=== PATIENT | female | born 1980 | race Caucasian/White ===

== ENCOUNTER 2018-01-07 12:01 | Emergency (ER) | payer MEDICARE, MEDICAID ==
--- NOTE | 2018-01-07 12:24 | ED.PDOC ---
History of Present Illness - General Chief Complaint: Dental/Mouth Stated Complaint: toothache Time Seen by Provider: 01/07/18 12:23 Source: patient Exam Limitations: no limitations - History of Present Illness Initial Comments: Karen Manley 37 y/o female stated that she had dull pain on her right upper molar for the last one week had seen dentist in [place] but told that she needs oral surgeon. Timing/Duration: last week EENT Location: dental Prearrival Treatment: no prearrival treatment Presenting Symptoms: dental pain Improving Factors: nothing Worsening Factors: eating Associated Symptoms: denies symptoms Allergies/Adverse Reactions: Allergies Sertraline [From Zoloft] Allergy (Verified 01/07/18 12:26) Home Medications: Ambulatory Orders Acetamin W/Cod #3 Tab [Tylenol w/CODEINE #3] 1 ea PO TID PRN #6 tab 01/07/18 Clindamycin HCl 150 mg PO TID 7 Days #21 cap 01/07/18 Gabapentin 300 mg PO BID #6 cap 01/07/18 Review of Systems - Review of Systems Constitutional: States: no symptoms reported EENTM: States: see HPI Respiratory: States: no symptoms reported Cardiology: States: no symptoms reported Gastrointestinal/Abdominal: States: no symptoms reported Past Medical History (General) - Patient Medical History Hx Seizures: No Hx Asthma: No Hx Hypertension: No Surgical History: other - btl - Social History Hx Tobacco Use: Yes Hx Alcohol Use: No Hx Substance Use: No Hx Substance Use Treatment: No - Female History Patient is a Female of Child Bearing Age (10 -59 yrs old): Yes Hx Last Menstrual Period: 01/02/18 Patient : No Family Medical History - Family History Father Hx Family Hypertension: Yes - mom Hx Family Cancer: Yes - dad-skin cancer Mother Family History: Unknown Living Status: Physical Exam - Physical Exam General Appearance: Alert, Comfortable, No apparent distress Eye Exam: bilateral normal Ear Exam: bilateral ear: auricle normal, canal normal, TM normal Nasal Exam: normal inspection Throat Exam: dental tenderness - upper molar with gum swelling around decayed tooth, other - multiple decayed teeth Neck: non-tender, full range of motion, supple, normal inspection, trachea midline Cardiovascular/Respiratory: regular rate, rhythm, no M/R/G, normal peripheral pulses Abdominal Exam: non-tender, no organomegaly Neurologic: no motor/sensory deficits, alert, oriented x 3 Skin Exam: normal color, warm/dry Progress - Progress Progress: 01/07/18 12:33 Vital Signs - 8 hr 01/07/18 12:05 Temperature 96.3 F L Pulse Rate [ 75 monitor] Respiratory 18 Rate Blood Pressure 161/103 [Left Arm] O2 Sat by Pulse 100 Oximetry Departure - Departure Clinical Impression: Pain due to dental caries, Dental caries extending into pulp Time of Disposition: 12:35 Disposition: Discharge to Home or Self Care Condition: Fair Departure Forms: ED Discharge - Pt. Copy, Patient Portal Self Enrollment Instructions: DI for Dental Pain, Tooth Decay, Adult, Tooth Decay, Adult (DC), Dental Pain (DC) Diet: other - SOFT DIET ONLY UNTIL BETTER Referrals: Theodore Garcia MD [Primary Care Provider] - 1-2 Weeks Prescriptions: Acetamin W/Cod #3 Tab [Tylenol w/CODEINE #3] 1 ea PO TID PRN #6 tab PRN Reason: Pain Clindamycin HCl 150 mg PO TID 7 Days #21 cap Gabapentin 300 mg PO BID #6 cap Home Medications: Ambulatory Orders Acetamin W/Cod #3 Tab [Tylenol w/CODEINE #3] 1 ea PO TID PRN #6 tab 01/07/18 Clindamycin HCl 150 mg PO TID 7 Days #21 cap 01/07/18 Gabapentin 300 mg PO BID #6 cap 01/07/18 Additional Instructions: Need to call back dental surgeon in am for appointment
[2018-01-07 12:34] VITALS: BP 161/103; TEMP 96.3; O2SAT 100
[2018-01-07] MEDS: CLINDAMYCIN PHOSPHATE 150 MG/ML VIAL IM ONE (12:39)
[2018-01-07] MEDS: CLINDAMYCIN HCL CAP 150 MG CAP PO ONE (12:39)
== END 2018-01-07 12:55 | disposition home or self-care (01) ==
LOC: ER 12:01
DX: K02.9 Dental caries, unspecified (principal); Z87.891 Personal history of nicotine dependence

== ENCOUNTER 2018-03-26 18:15 | Emergency (ER) | payer MEDICARE, MEDICAID ==
[2018-03-26 18:44] VITALS: TEMP 97.4; O2SAT 100
[2018-03-26] MEDS ORDERED: CHLORHEXIDINE GLUCONATE 4 % 15 ML UD TOP ONE (18:50)
[2018-03-26] MEDS ORDERED: LIDOCAINE 1% 10 ML VIAL INJ ONE (18:50)
--- NOTE | 2018-03-26 18:54 | ED.PDOC ---
History of Present Illness - General Chief Complaint: Skin/Abrasion/Tear Stated Complaint: laceration Time Seen by Provider: 03/26/18 18:47 Source: patient Exam Limitations: no limitations - History of Present Illness Initial Comments: CUT HAND WHILE WASHING A GLASS Timing/Duration: just prior to arrival Severity: mild Location: hands Improving Factors: immobilization Worsening Factors: movement Associated Symptoms: denies symptoms Allergies/Adverse Reactions: Allergies Sertraline [From Zoloft] Allergy (Verified 01/07/18 12:26) Home Medications: Ambulatory Orders Acetamin W/Cod #3 Tab [Tylenol w/CODEINE #3] 1 ea PO TID PRN #6 tab 01/07/18 Clindamycin HCl 150 mg PO TID 7 Days #21 cap 01/07/18 Gabapentin 300 mg PO BID #6 cap 01/07/18 Review of Systems - Review of Systems Constitutional: States: no symptoms reported EENTM: States: no symptoms reported Respiratory: States: no symptoms reported Cardiology: States: no symptoms reported Musculoskeletal: States: no symptoms reported Skin: States: see HPI Neurological: Denies: numbness, weakness Past Medical History (General) - Patient Medical History Hx Seizures: No Hx Stroke: No Hx Dementia: No Hx Asthma: No Hx of COPD: No Hx Cardiac Disorders: No Hx Congestive Heart Failure: No Hx Pacemaker: No Hx Hypertension: No Hx Thyroid Disease: No Hx Diabetes: No Hx Gastroesophageal Reflux: No Hx Renal Disease: No Hx of HIV: No Hx MRSA: No Surgical History: other - Vaccination History Hx Tetanus, Diphtheria Vaccination: No Hx Influenza Vaccination: No Hx Pneumococcal Vaccination: No - Social History Hx Tobacco Use: Yes Hx Alcohol Use: No Hx Substance Use: No Hx Substance Use Treatment: No Hx Depression: Yes - bipolar - Female History Hx Last Menstrual Period: 01/02/18 Patient : No Family Medical History - Family History Father Family History: No Known Hx Family Hypertension: Yes - mom Hx Family Cancer: Yes - dad-skin cancer Mother Family History: Unknown Living Status: Physical Exam - Physical Exam General Appearance: Alert, Anxious Eyes, Ears, Nose, Throat Exam: TMs normal Neck: normal inspection Extremity: other - 1.5 CM LAC AT BASE OF R 5TH FINGER, [place] [employer] Skin Exam: warm/dry Procedures - Laceration/Wound Repair Right Volar Hand Wound Length (cm): 1.5 Wound's Depth, Shape: linear Wound Explored: clean Betadine Prep?: No Anesthesia: 1% Lidocaine Wound Repaired With: sutures Suture Size/Type: 4:0 Number of Sutures: 2 Layer Closure?: No Sterile Dressing Applied?: Yes Splint Applied?: No Sling Applied?: No Departure - Departure Clinical Impression: Laceration of right hand without complication, excluding fingers Qualifiers: Encounter type: initial encounter Qualified Code(s): S61.411A - Laceration without foreign body of right hand, initial encounter Disposition: Discharge to Home or Self Care Condition: Fair Departure Forms: ED Discharge - Pt. Copy, Patient Portal Self Enrollment Instructions: DI for Abrasion Referrals: Theodore Garcia MD [Primary Care Provider] - 1-2 Weeks Home Medications: Ambulatory Orders Acetamin W/Cod #3 Tab [Tylenol w/CODEINE #3] 1 ea PO TID PRN #6 tab 01/07/18 Clindamycin HCl 150 mg PO TID 7 Days #21 cap 01/07/18 Gabapentin 300 mg PO BID #6 cap 01/07/18
[2018-03-26] MEDS ORDERED: TETANUS,DIPHTHERIA,PERTUSSIS 1 EA SYG IM ONE (18:57)
[2018-03-26] MEDS ORDERED: NEOMYCIN-BACITRACIN-POLYMYXIN 0.9 GM UD TOP ONE (19:18)
[2018-03-26 19:33] VITALS: BP 133/79
== END 2018-03-26 19:33 | disposition home or self-care (01) ==
LOC: ER 18:15
DX: S61.411A Laceration without foreign body of right hand, initial encounter (principal); F31.9 Bipolar disorder, unspecified; Z87.891 Personal history of nicotine dependence; W25.XXXA Contact with sharp glass, initial encounter; Y93.G1 Activity, food preparation and clean up; Z23 Encounter for immunization

== ENCOUNTER 2019-01-10 13:11 | Emergency (ER) | payer MEDICARE, MEDICAID ==
[2019-01-10 13:29] VITALS: TEMP 97.8
[2019-01-10] MEDS ORDERED: SODIUM CHLORIDE 0.9% 1000ML 1,000 ML IVS ONE (13:50)
--- NOTE | 2019-01-10 14:00 | ED.PDOC ---
History of Present Illness - General Chief Complaint: Chest Pain/IA Stated Complaint: chest pain, dizziness Time Seen by Provider: 01/10/19 13:21 - History of Present Illness Initial Comments: Pt is a 38yo F who presents c/o dizziness and chest pain. Says she was having mild/intermittent chest pain over the past couple of days. none currently. No aggravating or alleviating symptoms. Says now that she just feels dizzy and lightheaded, but came to the ED today "just to get checked out. Endoreses some slight shortness of breath as well. No cough, fevers, chills, recent surgery, travel. no OCPs. Allergies/Adverse Reactions: Allergies Sertraline [From Zoloft] Allergy (Verified 01/07/18 12:26) Valproic Acid [From Depakote] Allergy (Verified 01/10/19 13:50) Hives Home Medications: Ambulatory Orders Acetamin W/Cod #3 Tab [Tylenol w/CODEINE #3] 1 ea PO TID PRN #6 tab 01/07/18 Clindamycin HCl 150 mg PO TID 7 Days #21 cap 01/07/18 Gabapentin 300 mg PO BID #6 cap 01/07/18 Review of Systems - Review of Systems Constitutional: States: no symptoms reported EENTM: States: no symptoms reported Respiratory: States: short of breath. Denies: wheezing Cardiology: States: chest pain. Denies: edema Gastrointestinal/Abdominal: States: no symptoms reported Genitourinary: States: no symptoms reported Musculoskeletal: States: no symptoms reported Skin: States: no symptoms reported Neurological: States: no symptoms reported Endocrine: States: no symptoms reported Hematologic/Lymphatic: States: no symptoms reported All other Systems: Reviewed and Negative Past Medical History (General) - Patient Medical History Hx Seizures: No Hx Stroke: No Hx Dementia: No Hx Asthma: No Hx of COPD: No Hx Cardiac Disorders: No Hx Congestive Heart Failure: No Hx Pacemaker: No Hx Hypertension: No Hx Thyroid Disease: No Hx Diabetes: No Hx Gastroesophageal Reflux: No Hx Renal Disease: No Hx of HIV: No Hx MRSA: No - Vaccination History Hx Tetanus, Diphtheria Vaccination: No Hx Influenza Vaccination: No Hx Pneumococcal Vaccination: No - Social History Hx Tobacco Use: Yes Hx Alcohol Use: No Hx Substance Use: No Hx Substance Use Treatment: No Hx Depression: Yes - bipolar - Female History Hx Last Menstrual Period: 01/02/18 Patient : No Family Medical History - Family History Mother Family History: Unknown Living Status: Father Family History: No Known Hx Family Hypertension: Yes - mom Hx Family Cancer: Yes - dad-skin cancer Maternal Grandparents Hx Cardiac Disease: Yes Physical Exam - Physical Exam General Appearance: Alert, Comfortable Eyes, Ears, Nose, Throat Exam: PERRL/EOMI, normal ENT inspection Neck: non-tender, full range of motion Respiratory: lungs clear, normal breath sounds Cardiovascular/Chest: normal peripheral pulses, regular rate, rhythm Gastrointestinal/Abdominal: non tender, soft Extremity: normal range of motion, non-tender Neurologic: no motor/sensory deficits, alert, normal mood/affect Skin Exam: normal color, warm/dry Progress - Progress Progress: 01/10/19 15:26 MDM Well appearing pt here with slight lightheadedness and episodic chest pain. Doubt ACS. PERC neg. Plan: labs, ekg, xr, treat symptoms, reassess - Results/Orders Results/Orders: Laboratory Results - last 24 hr 01/10/19 01/10/19 01/10/19 13:45 13:45 13:45 WBC 7.6 RBC 4.39 Hgb 12.6 Hct 37.8 MCV 86.0 MCH 28.7 MCHC 33.4 RDW 14.7 H Plt Count 247 MPV 9.4 Absolute Neuts (auto) 4.60 Absolute Lymphs (auto) 2.20 Absolute Monos (auto) 0.50 Absolute Eos (auto) 0.10 Absolute Basos (auto) 0.10 Neutrophils % 61.5 Lymphocytes % 29.4 Monocytes % 6.5 Eosinophils % 1.3 Basophils % 1.3 Sodium 135 Potassium 4.1 Chloride 103 Carbon Dioxide 20 L Anion Gap 16.1 BUN 12 Creatinine 0.84 BUN/Creatinine Ratio 14.3 Random Glucose 96 Serum Osmolality 269.7 L Calcium 9.4 Troponin I < 0.02 - EKG/XRAY/CT Comments: NSR @ 74, normal axis & intervals, no STEMI XRAY: chest Xray Comments: No acute findings Departure - Departure Clinical Impression: Lightheadedness Disposition: Discharge to Home or Self Care Condition: Fair Departure Forms: ED Discharge - Pt. Copy, Patient Portal Self Enrollment Instructions: DI for Chest Pain Referrals: Thalia Mcgregor NP [Primary Care Provider] - 1-2 Weeks Home Medications: Ambulatory Orders Acetamin W/Cod #3 Tab [Tylenol w/CODEINE #3] 1 ea PO TID PRN #6 tab 01/07/18 Clindamycin HCl 150 mg PO TID 7 Days #21 cap 01/07/18 Gabapentin 300 mg PO BID #6 cap 01/07/18
--- NOTE | 2019-01-10 14:29 | RAD ---
EXAM DESCRIPTION: Chest,2 Views CLINICAL HISTORY: 38 years Female, chest pain COMPARISON: None. FINDINGS: Heart size and pulmonary vessels are within normal limits. There is no pneumothorax or pleural effusion. The lungs are clear bilaterally. The soft tissues are unremarkable. No acute osseous findings. IMPRESSION: No acute cardiopulmonary abnormality. Electronically signed by: Ho Velasquez MD 01/10/2019 2:27 PM CDT
[2019-01-10 15:32] VITALS: O2SAT 100
[2019-01-10 15:57] VITALS: BP 144/76
== END 2019-01-10 15:50 | disposition home or self-care (01) ==
LOC: ER 13:11
DX: R42 Dizziness and giddiness (principal); R07.9 Chest pain, unspecified; R06.02 Shortness of breath; F31.9 Bipolar disorder, unspecified; Z87.891 Personal history of nicotine dependence; Z79.899 Other long term (current) drug therapy; Z88.8 Allergy status to other drugs, medicaments and biological substances
CPT/HCPCS: 36415; 71046; 80048; 84484; 85025; 93005; J7030

== ENCOUNTER 2020-01-22 10:12 | Emergency (ER) | payer MEDICARE, MEDICAID ==
--- NOTE | 2020-01-22 10:41 | ED.PDOC ---
History of Present Illness - General Chief Complaint: Respiratory Problem Stated Complaint: body aches, exposed to COVID Time Seen by Provider: 01/22/20 10:14 Source: patient, RN notes reviewed, Vital Signs reviewed, old records Exam Limitations: no limitations - History of Present Illness Comments: 39 yo F comes in with the c/c of mild cough, body aches x 1 days. Was exposed to covid one week ago. some nausea. no diarrhae, no sore throat, no change in taste in smell. Allergies/Adverse Reactions: Allergies Fluoxetine [From Prozac] Allergy (Verified 01/22/20 11:00) Sertraline [From Zoloft] Allergy (Verified 01/07/18 12:26) Valproic Acid [From Depakote] Allergy (Verified 01/10/19 13:50) Hives Review of Systems - Review of Systems Constitutional: States: malaise. Denies: chills, fever EENTM: Denies: blurred vision, ear pain, nose congestion, throat pain, mouth pain Respiratory: States: cough. Denies: orthopnea, short of breath Cardiology: Denies: chest pain, palpitations, syncope Gastrointestinal/Abdominal: Denies: abdominal pain, diarrhea, nausea Genitourinary: Denies: frequency, hematuria Musculoskeletal: States: muscle pain. Denies: joint pain, joint swelling Neurological: Denies: headache, numbness, paresthesia, tremors, weakness Endocrine: Denies: increased urine, unexplained weight gain, unexplained weight loss Hematologic/Lymphatic: Denies: blood clots, easy bleeding, easy bruising Past Medical History (General) - Patient Medical History Hx Seizures: No Hx Stroke: No Hx Dementia: No Hx Asthma: No Hx of COPD: No Hx Cardiac Disorders: No Hx Congestive Heart Failure: No Hx Pacemaker: No Hx Hypertension: No Hx Thyroid Disease: No Hx Diabetes: No Hx Gastroesophageal Reflux: No Hx Renal Disease: No Hx of HIV: No Hx MRSA: No - Vaccination History Hx Tetanus, Diphtheria Vaccination: No Hx Influenza Vaccination: No Hx Pneumococcal Vaccination: No - Social History Hx Tobacco Use: Yes Hx Alcohol Use: No Hx Substance Use: No Hx Substance Use Treatment: No Hx Depression: Yes - bipolar - Female History Hx Last Menstrual Period: 01/02/18 Patient : No Family Medical History - Family History Mother Family History: Unknown Living Status: Father Family History: No Known Hx Family Hypertension: Yes - mom Hx Family Cancer: Yes - dad-skin cancer Maternal Grandparents Hx Cardiac Disease: Yes Physical Exam - Physical Exam General Appearance: Alert, Comfortable, No apparent distress, Obese, Well Developed, Well Groomed, Well Hydrated, Well Nourished Eye Exam: bilateral normal ENT Exam: normal ENT inspection, hearing grossly normal, TMs normal, pharynx normal, nasal congestion, nasal drainage Neck: non-tender, full range of motion, supple, normal inspection, trachea midline Respiratory: chest non-tender, lungs clear, normal breath sounds, no respiratory distress, no accessory muscle use Cardiovascular/Chest: normal peripheral pulses, regular rate, rhythm, no edema, no gallop, no JVD, no murmur Gastrointestinal/Abdominal: normal bowel sounds, non tender, soft, no organomegaly, no pulsatile mass Extremity: normal range of motion, non-tender, normal inspection, no pedal edema, no calf tenderness, normal capillary refill 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 The data reviewed when caring for this patient included: nurse notes, prior records, etc. The history and assessments from nurses notes were reviewed and considered, and the patient's home medication list was also reviewed and considered. My assessment and the results of testing completed here in the ED were discussed with the patient/family. All questions were answered, and they express understanding of my assessment and the plan. They have been instructed to return if their symptoms worsen, and have been asked to follow up with their primary care physician to recheck today's presenting complaint. Strict return precautions given. Kenyatta Godfrey DO #[id number] Departure - Departure Clinical Impression: COVID-19 Time of Disposition: 11:01 Disposition: Discharge to Home or Self Care Condition: Fair Departure Forms: ED Discharge - Pt. Copy, Patient Portal Self Enrollment Instructions: Muscle and Bone Pain (DC), Cough, Adult (DC) Diet: resume usual diet Referrals: Thalia Mcgregor NP [Primary Care Provider] - 1-2 Weeks
[2020-01-22 11:00] VITALS: O2SAT 98
[2020-01-22 12:25] VITALS: BP 114/76; TEMP 97.6
== END 2020-01-22 11:30 | disposition home or self-care (01) ==
LOC: ER 10:12
DX: U07.1 COVID-19 (principal); F31.9 Bipolar disorder, unspecified; Z87.891 Personal history of nicotine dependence; Z88.8 Allergy status to other drugs, medicaments and biological substances